=== PATIENT | male | born 1960 | race Caucasian/White ===

== ENCOUNTER 2022-01-21 18:56 | Emergency (ER) | payer BC ==
[~2022-01-21] VITALS: Ht 177.8 cm; Wt 90.9 kg
[2022-01-21] MEDS ORDERED: FLOM0.4C39 PO (19:28)
[2022-01-21] MEDS ORDERED: ONDANSETRON 4MG 2ML VIAL IV PRN (20:30)
[2022-01-21] MEDS: MORPHINE 2 MG/ML 1ML VIAL IV PRN ×2 (20:48→23:12)
[2022-01-21 20:49] LABS: BASO % 0.3 % (0.0-1.0); EOS # 0.1 10^3/uL (0.0-0.5); EOS % 0.6 % (0.0-3.0); HEMATOCRIT 43.3 % (42.0-52.0); HEMOGLOBIN 14.7 g/dl (13.5-17.5); LYMPH # 1.5 10^3/uL (1.5-5.0); LYMPH % 11.6 % (24.0-44.0); MEAN CORPUSCULAR HEMOGLOBIN 29.7 pg (27.0-33.0); MEAN CORPUSCULAR HGB CONC 33.9 g/dl (32.0-36.5); MEAN CORPUSCULAR VOLUME 87.5 fl (80.0-96.0); MONO # 0.9 10^3/uL (0.0-0.8); MONO % 6.8 % (2.0-8.0); NEUTROPHILS # 10.1 10^3/uL (1.5-8.5); NEUTROPHILS % 80.2 % (36.0-66.0); PLATELET COUNT, AUTOMATED 222 10^3/uL (150-450); RED BLOOD COUNT 4.95 10^6/uL (4.30-6.10); WHITE BLOOD COUNT 12.6 10^3/uL (4.0-10.0)
[2022-01-21] MEDS ORDERED: ISOVUE-370 76% 100ML VIAL As Ordered ONE (20:49)
[2022-01-21 22:45] VITALS: BP 145/85
[2022-01-21] MEDS ORDERED: KETOROLAC 30 MG/ML 1ML VIAL IV ONE (23:15)
[2022-01-21] MEDS ORDERED: OXYCODONE/APAP 5MG/325MG(HOME DOSE PACK) PO ONE (23:30)
[2022-01-21] MEDS ORDERED: OXYC1TAB23 PO ×2 (23:37→23:59)
== END 2022-01-22 00:05 | disposition home or self-care (01) ==
LOC: M ED 18:56
DX: S43.101A Unspecified dislocation of right acromioclavicular joint, initial encounter (principal); M54.9 Dorsalgia, unspecified; W13.3XXA Fall through floor, initial encounter; Y92.009 Unspecified place in unspecified non-institutional (private) residence as the place of occurrence of the external cause; M43.17 Spondylolisthesis, lumbosacral region; M48.061 Spinal stenosis, lumbar region without neurogenic claudication; M50.30 Other cervical disc degeneration, unspecified cervical region; Z88.0 Allergy status to penicillin
CPT/HCPCS: 70450; 72125; 73030; 73060; 73502; 74177; 80047; 85025; 96374; 96375; 99285; J1885; J2270; J2405; Q9967